=== PATIENT | male | born 1975 | race Two or more races ===

== ENCOUNTER 2024-07-18 22:55 | Emergency (ER) | payer MEDICAID, SELFPAY ==
[2024-07-18 22:56] VITALS: BMI 25.2
--- NOTE | 2024-07-18 23:05 | XR_ITS ---
Examination: CT brain head without contrast. 2-D sagittal coronal reconstructions Date and time of exam:July 19, 2024 0051 hrs. Indications: Headaches neck pain beginning 6 days ago CTDI: vol (mGy):47.6 DLP: (mGycm):947 Technique: Multiple CT axial sections of the brain have been obtained, 5 mm slice thickness. Contrast has not been administered. 2-D sagittal, coronal reconstructions have been obtained Low dose protocols were performed. One or more of the following dose reduction techniques were used; automated exposure control, adjustment of the mA and/or KV according to patient size, use of iterative reconstruction technique. Findings: No significant ventricular enlargement. Intra-axial or extra-axial hemorrhage density is not seen. No mass effect or midline shift Basal cisterns are not remarkable. Fourth ventricle is midline. Cranial vault intact. Large retention cyst in right maxillary antrum small retention cyst left maxillary antrum Impression: Negative for acute hemorrhage, mass effect or midline shift
[2024-07-18 23:07] VITALS: BP 136/78; PULSE 89; RESP 18; TEMP 36.4; O2SAT 97
[2024-07-18 23:33] LABS: Collection Type, Urine Clean Catch; Squamous Epithelial Cell,Urine 0 /hpf (0-5); WBC,Urine 0 /hpf (0-5)
[2024-07-19 00:26] LABS: Bilirubin,Urine Negative (Negative); Blood,Urine Trace (Negative); Color,Urine Lt-Yellow (Lt Yel-Yel); Culture Indicated,Urine Not Indicated; Glucose, Urine Negative (Negative); Ketones,Urine Negative (Negative); Leukocyte Esterase,Urine Negative (Negative); Nitrite,Urine Negative (Negative); PH,Urine 7.5 (5.0-7.0); Protein,Urine Negative (Neg - Trace); RBC,Urine 2 /hpf (0-3); Urobilinogen,Urine Negative mg/dL (0.0-1.0)
[2024-07-19 00:27] LABS: Clarity,Urine Turbid (Clear/Hazy)
[2024-07-19 00:44] LABS: Amphetamine/Methamp Scrn,U Negative (Negative); Barbiturate Screen,Urine Negative (Negative); Benzodiazepines Screen,Urine Negative (Negative); Benzoylecgonine Screen, Ur Negative (Negative); Fentanyl Screen,Urine Negative (Negative); Opiate Screen,Urine Negative (Negative); THC Screen,Urine Negative (Negative)
--- NOTE | 2024-07-19 03:07 | PD.EDHA ---
ED Headache RME/HPI General Chief Complaint: Headache Stated Complaint: headache, neck pain, abd pain Time Seen by Provider: 07/18/24 22:58 Arrival date/time: 07/18/24 22:55 RME / HPI RME / HPI Narrative: This section includes all my notes and documentations, including HPI, PE, and ED course.? Colin Thompson MD HPI: 49 year old male here with a few days of severe headache. In the posterior area. Has difficulty describing the quality of the pain. No visual or speech impairment. Nausea on and off. No fever. No loss of power in arms or legs. No other complaints. ROS: All negative except as documented in HPI. Physical Exam: General:? Alert and oriented.? Appears uncomfortable. Eyes:? Conjunctivae and lids clear.? PERRL. EOMI. ENT:? No nasal congestion. Pharynx normal. TM normal bilaterally. Neck:? Supple.? No carotid bruit. Heart:? RRR.? Lungs:? No respiratory distress.? Good air movement.? No rhonchi, wheezing, rales.?? Abdomen:? Soft and nontender.?? Legs:? No clubbing, cyanosis, edema.? Skin:? Warm and dry.?? Neuro:? Alert and oriented X 3.??CN 2-12 grossly normal. No peripheral motor deficits. I reviewed all diagnostic test results. My review of the head CT report is?no acute findings. UDS negative. UA unremarkable. At this point, diagnoses include?Tension Headache. Treatment here included?Zofran and Tylenol #3. Significant improvement noted. Recommended supportive care. Based on my best medical judgment, made decision no further evaluation or treatment indicated at this time.? Patient understands and agrees to the discharge instructions customized and printed, see below. Discharge Instructions from Dr. Thompson printed for you: 1. There is no life-threatening condition, such as stroke or brain tumor. 2. Zofran for nausea/vomiting. Tylenol with codeine for severe pain. 3. See a private doctor on 07/21/2024 for recheck and further care. 4. Seek immediate medical care with worsening or with any concerns. Colin Thompson MD Related Data Previous Rx's ?Medication ?Instructions ?Recorded ibuprofen 600 mg tablet 600 mg PO Q8HR PRN PAIN #25 tabs 02/06/16 acetaminophen 300 mg-codeine 30 mg 2 tab PO TID PRN pain #20 tabs 07/19/24 tablet Allergies Allergy/AdvReac Type Severity Reaction Status Date / Time NKA* Allergy Uncoded 07/18/24 22:59 Course Quality Measures none Orders Category Date Time Status CT head/brain wo con Stat Exams 07/18/24 23:05 Completed Drug Screen,Urine Stat Lab 07/18/24 23:22 Completed UA, C/S IF [Urinalysis, C/S if Indicated] Stat Lab 07/18/24 23:22 Completed ACETAMINOPHEN w/COD 300-30 [Tylenol w/Cod #3] Med 07/19/24 03:01 Discontinued 2 tab PO X1 ONE Ondansetron Odt [Zofran Odt] Med 07/19/24 03:01 Discontinued 4 mg PO X1 ONE Vital Signs Vital signs: Vital Signs Temperature 97.6 F 07/18/24 23:07 Pulse Rate 89 07/18/24 23:07 Respiratory Rate 18 07/18/24 23:07 Blood Pressure 136/78 H 07/18/24 23:07 Pulse Oximetry (%) 97 07/18/24 23:07 Oxygen Delivery Method Room Air 07/18/24 23:07 Headache Patient data External records reviewed:: [facility] previous records Clinical information provided by:: patient Social determinants that could affect healthcare access:: none Patient has the following chronic illnesses:: None How is presenting disease/condition affected by chronic disease/condition?: no chronic disease Evaluation data The following diagnostics were reviewed and interpreted by me:: lab results and radiology exam(s) Lab and/or radiology exams considered but not ordered:: None Interpretation Summary: Tension Headache Medications / Prescriptions Medications or Prescriptions considered but not ordered:: None Medication administrations:: Medication Administration History Discontinued Medications Acetaminophen/Codeine Phosphate (Acetaminophen W/Cod 300-30 Tablet) 2 tab PO X1 ONE Stop: 07/19/24 03:02 Last Admin: 07/19/24 03:08 Dose: 2 tab Documented By: KG Ondansetron HCl (Ondansetron Odt 4 Mg Tabrap) 4 mg PO X1 ONE; Protocol Stop: 07/19/24 03:02 Last Admin: 07/19/24 03:09 Dose: 4 mg Documented By: KG Zofran and Tylenol #3 Consultations Consultation(s) initiated? (list below): No Diagnosis Differential diagnosis headache: migraine, tension headache and subarachnoid hemorrhage Most likely diagnosis given after review of the tests above:: Tension Headache Admission Indicated Admission indicated?: not indicated Explain why admission is indicated or not indicated:: Admission was not indicated. Admission Request Was there a request for admission?: No Disposition Plan Disposition Plan: Discharge Discharge Attestation Discharge Attestation: The patient and all family members were given an opportunity to ask questions and understood the discharge instructions. Discharge instructions specifically effects, indications for sooner follow up or return to the emergency department, and the expected course of current diagnosis. Patient condition: Stable Discharge Plan Plan Patient Disposition: HOME (Self Care) Prescriptions/Referrals Prescriptions/Med Rec: New acetaminophen-codeine 300-30 mg tablet 2 tab PO TID MDD 6 PRN (Reason: pain) Qty: 20 0RF No Action ibuprofen 600 MG tablet 600 mg PO Q8HR PRN (Reason: PAIN) Qty: 25 0RF Problem List Clinical Impression: Headache Patient/Caregiver Discharge Instructions Discharge Activity: activity as tolerated Education Materials: ED Headache, Tension, ED Headache, Migraine, Classic Additional Instructions: Discharge Instructions from Dr. Thompson printed for you: 1. There is no life-threatening condition, such as stroke or brain tumor. 2. Zofran for nausea/vomiting. Tylenol with codeine for severe pain. 3. See a private doctor on 07/21/2024 for recheck and further care. 4. Seek immediate medical care with worsening or with any concerns. Print Language: Japanese Stand Alone Forms: Linda Award Info., Patient Portal Info Letter
[2024-07-19] MEDS: ACETAMINOPHEN w/COD 300-30 TABLET 2 TAB PO (03:08)
[2024-07-19] MEDS: ONDANSETRON ODT 4 MG TABRAP PO (03:09)
== END 2024-07-19 03:10 | disposition home or self-care (01) ==
LOC: SERX 07-19 03:42
PROVIDERS: Emergency Provider Emergency Medicine
DX: G44.209 Tension-type headache, unspecified, not intractable (principal)
CPT/HCPCS: 70450; 80307; 81001; 99284; Q0162; A9270

== ENCOUNTER 2024-07-26 11:51 | Emergency (ER) | payer MEDICAID, SELFPAY ==
[2024-07-26 12:09] VITALS: BP 131/78; PULSE 80; RESP 18; TEMP 37.2; O2SAT 98; BMI 24.2
--- NOTE | 2024-07-26 12:23 | XR_ITS ---
Examination: Abdomen sonogram, Limited Date and time of exam: July 26, 2024 1237 hrs. Indications: Epigastric pain abdominal pain today Technique: Real-time culp scale transabdominal sonographic images of the upper abdomen obtained. Findings: Negative for gallstones Gallbladder wall 0.36 cm no edema Common bile duct 0.5 cm no stones Pancreatic head 2.6 cm Liver 13.9 cm no focal liver lesions Normal hepatopedal portal venous flow Patent IVC Impression: Negative for cholelithiasis, negative for cholecystitis Normal common bile duct
--- NOTE | 2024-07-26 12:29 | PD.EDNV ---
Nausea/Vomit./Diarrhea-RME/HPI General Chief complaint: Headache Stated complaint: HEADACHE, ABD PAIN, NAUSEA X 13 DAYS Time Seen by Provider: 07/26/24 12:28 Source: patient Arrival date/time: 07/26/24 11:51 49-year-old male with no known medical history presents to the emergency room with a chief complaint of right upper quadrant abdominal pain and tenderness, nausea, headaches x 13 days. Mode of arrival: ambulatory Limitations: no limitations Related Data Previous Rx's ?Medication ?Instructions ?Recorded ibuprofen 600 mg tablet 600 mg PO Q8HR PRN PAIN #25 tabs 02/06/16 acetaminophen 300 mg-codeine 30 mg 2 tab PO TID PRN pain #20 tabs 07/19/24 tablet docusate sodium 100 mg capsule 100 mg PO QDAY #14 caps 07/26/24 (Colace) ondansetron 4 mg disintegrating 4 mg PO Q8H PRN nausea and 07/26/24 tablet vomiting #14 tabs omeprazole 20 mg capsule,delayed 20 mg PO QDAY 14 days #14 caps 07/28/24 release ondansetron 4 mg disintegrating 4 mg PO Q8H PRN nausea and 07/28/24 tablet vomiting #15 tabs Allergies Allergy/AdvReac Type Severity Reaction Status Date / Time NKA* Allergy Uncoded 07/26/24 11:53 Review of Systems Review of Systems Systems Reviewed: All systems reviewed, normal except as documented Constitutional Constitutional: Reports system reviewed and no additional complaints, except as documented, Denies fatigue, Denies fever(s), Denies headache(s) and Denies weakness Eyes Eyes: Reports system reviewed and no additional complaints, except as documented, Denies blurry vision and Denies change in vision ENT Ears, Nose, Mouth, and Throat: Reports system reviewed and no additional complaints, except as documented, Denies otalgia, Denies headache(s), Denies nasal congestion, Denies throat swelling and Denies vertigo Cardiovascular Cardiovascular: Reports system reviewed and no additional complaints, except as documented, Denies chest pain, Denies dyspnea and Denies dyspnea on exertion Respiratory Respiratory: Reports system reviewed and no additional complaints, except as documented, Denies chest congestion, Denies cough, Denies dyspnea, Denies dyspnea on exertion and Denies wheezing Gastrointestinal Gastrointestinal: Reports system reviewed and no additional complaints, except as documented, Denies abdominal pain, Denies cramping, Denies nausea and Denies vomiting Genitourinary Genitourinary: Reports system reviewed and no additional complaints, except as documented, Denies dysuria and Denies hematuria Musculoskeletal Musculoskeletal: Reports system reviewed and no additional complaints, except as documented and Denies back pain Integumentary/Breasts Skin/Breast: Reports system reviewed and no additional complaints, except as documented and Denies wounds Neurologic Neurologic: Reports system reviewed and no additional complaints, except as documented, Denies confusion, Denies headache(s), Denies lack of coordination, Denies vertigo and Denies weakness Psychiatric Psychiatric: Reports system reviewed and no additional complaints, except as documented, Denies anxiety, Denies confusion, Denies depression, Denies paranoia, Denies suicidal ideation and Denies tactile hallucinations Endocrine Endocrine: Reports system reviewed and no additional complaints, except as documented and Denies fatigue Hematologic/Lymphatic Hematologic/Lymphatic: Reports system reviewed and no additional complaints, except as documented and Denies lymphadenopathy Allergic/Immunologic Allergic/Immunologic: Reports system reviewed and no additional complaints, except as documented, Denies throat swelling, Denies urticaria and Denies wheezing Past Medical History Past Medical History CARDIAC: Negative Congestive Heart Failure RESPIRATORY: Negative Chronic Obstructive Pulmonary Disease (COPD) GENITOURINARY: Negative Renal Disease ENDOCRINE: Negative Diabetes Mellitus Type 1 or Diabetes Mellitus Type 2 Social History SMOKING STATUS: Never smoker ED Exam General Limitations: Present no limitations General appearance: Present alert and in no apparent distress Head Head exam: Present atraumatic Eye Eye exam: Present normal appearance, PERRL and EOMI ENT ENT exam: Present normal exam, normal oropharynx and mucous membranes moist Neck Neck exam: Present normal inspection, full ROM and trachea midline Chest Chest inspection: Present normal inspection and symmetric chest wall rise Respiratory Respiratory exam: Present normal lung sounds bilaterally Cardiovascular Cardiovascular exam: Present regular rate, normal rhythm and normal heart sounds Abdominal Exam Abdominal exam: Present soft and normal bowel sounds Extremities Exam Extremities exam: Present normal inspection and full ROM Back Exam Back exam: Present normal inspection and full ROM Neurological Exam Neurological exam: Present alert, oriented X3 and CN II-XII intact Psychiatric Psychiatric exam: Present normal affect and normal mood Skin Skin exam: Present warm, dry, intact and normal color Course Quality Measures none Orders Category Date Time Status Bedside COVID-19 Antigen Test NOW Care 07/26/24 12:24 Completed Bedside Influenza A&B Antigen Test NOW Care 07/26/24 12:24 Completed US gall bladder Stat Exams 07/26/24 12:23 Completed CBC Stat Lab 07/26/24 12:43 Completed CMP [Comprehensive Metabolic Panel] Stat Lab 07/26/24 12:43 Completed Lipase Stat Lab 07/26/24 12:43 Completed UA [Urinalysis] Stat Lab 07/26/24 13:31 Completed Urine Culture Stat Lab 07/26/24 13:31 Completed Vital Signs Vital signs: Vital Signs Temperature 98.9 F 07/26/24 12:09 Pulse Rate 80 07/26/24 12:09 Respiratory Rate 18 07/26/24 12:09 Blood Pressure 131/78 H 07/26/24 12:09 Pulse Oximetry (%) 98 07/26/24 12:09 Oxygen Delivery Method Room Air 07/26/24 12:09 O2 saturation 98% within normal limit Nausea/Vomiting/Diarrhea MDM Narrative MDM Narrative:: 49-year-old male with no known medical history presents to the emergency room with a chief complaint of right upper quadrant abdominal pain and tenderness, nausea, headaches x 13 days. Patient is hemodynamically stable and in no apparent distress Physical examination shows right upper quadrant abdominal tenderness with palpation with a negative Gordon sign. Patient is also having pain and tenderness to the epigastric area of his abdomen. Ultrasound of the gallbladder was completed and was negative for any cholelithiasis or cholecystitis. CBC CMP were negative for any leukocytosis. Patient's sodium was at 127. Patient was educated to increase his sodium intake. Patient is alert and oriented and agreed to the plan. Patient was discharged and educated to follow-up with primary care provider and return to the emergency room for any evidence of worsening signs or symptoms Patient data External records reviewed:: [facility] previous records Clinical information provided by:: patient Social determinants that could affect healthcare access:: none Patient has the following chronic illnesses:: No chronic illness How is presenting disease/condition affected by chronic disease/condition?: no chronic disease Evaluation data The following diagnostics were reviewed and interpreted by me:: lab results and radiology exam(s) Lab and/or radiology exams considered but not ordered:: Labs and radiology exams considered and ordered Interpretation Summary: N/A Medications / Prescriptions Medications / Prescriptions considered but not ordered:: No medication given Medication administrations:: No medication given Consultations Consultation(s) initiated? (list below): No Diagnosis Nausea Differential Diagnosis: traveler's diarrhea, food poisoning, gastroenteritis, drug-induced nausea and vomiting and dehydration Most likely diagnosis given after review of the tests above:: Gastroenteritis Admission Indicated Admission indicated?: not indicated Admission Request Was there a request for admission?: No Disposition Plan Disposition Plan: Discharge Discharge Attestation Discharge Attestation: The patient and all family members were given an opportunity to ask questions and understood the discharge instructions. Discharge instructions specifically effects, indications for sooner follow up or return to the emergency department, and the expected course of current diagnosis. Patient condition: Stable Discharge Plan Plan Patient Disposition: HOME (Self Care) Disposition Comment: Stable Prescriptions/Referrals Prescriptions/Med Rec: New ondansetron 4 mg tablet,disintegrating 4 mg PO Q8H PRN (Reason: nausea and vomiting) Qty: 14 0RF docusate sodium [Colace] 100 mg capsule 100 mg PO QDAY Qty: 14 0RF No Action ibuprofen 600 MG tablet 600 mg PO Q8HR PRN (Reason: PAIN) Qty: 25 0RF acetaminophen-codeine 300-30 mg tablet 2 tab PO TID MDD 6 PRN (Reason: pain) Qty: 20 0RF omeprazole 20 mg capsule,delayed release(DR/EC) 20 mg PO QDAY 14 Days Qty: 14 0RF ondansetron 4 mg tablet,disintegrating 4 mg PO Q8H PRN (Reason: nausea and vomiting) Qty: 15 0RF Referrals: No Primary/Family,Physician [Primary Care Provider] - In 1 week Problem List Clinical Impression: Gastroenteritis Patient/Caregiver Discharge Instructions Education Materials: ED Gastroenteritis, Noninfectious Additional Instructions: Please follow-up with your primary care provider in the next 24 to 48 hours. For any evidence of worsening signs or symptoms please return to the emergency room immediately Print Language: Eritrean Stand Alone Forms: Linda Award Info., Patient Portal Info Letter PA/BRITTANI Supervising Physician PA/BRITTANI Supervising Physician: Dr. Boswell
[2024-07-26 13:11] LABS: Basophils % (Auto) 0 % (0-2.5); Eosinophils % (Auto) 0 % (0-10); Immature Granulocytes % (Auto) 1 % (0-0); Immature Granulocytes Auto 0.05 Thou/mm3 (0.00-0.00); Lymphocytes # (Auto) 1.1 Thou/mm3 (1.0-4.8); Lymphocytes % (Auto) 11 % (10-50); Mean Corpuscular HGB Conc 36.6 g/dl (31.0-37.0); Mean Corpuscular Hemoglobin 30.1 pg (25.0-35.0); Mean Corpuscular Volume 82 fL (80-100); Monocytes # (Auto) 0.6 Thou/mm3 (0.0-0.8); Monocytes % (Auto) 6 % (0-12); Neutrophils # (Auto) 8.3 Thou/mm3 (1.8-7.7); Neutrophils % (Auto) 82 % (37-80); Nucleated Red Blood Cell % 0 /100 WBC (0); Platelet Count 259 Thou/mm3 (140-440); RDW Standard Deviation 34.6 fL (35.1-43.9); Red Blood Count 4.98 Miln/mm3 (4.50-5.90); White Blood Count 10.1 Thou/mm3 (3.8-10.6)
[2024-07-26 13:29] LABS: Alanine Aminotransferase 10 U/L (10-49); Albumin, Serum 4.7 gm/dL (3.5-5.0); Albumin/Globulin Ratio 1.6 (1.2-2.2); Alkaline Phosphatase 91 U/L (46-116); Anion Gap 9 (7-16); Aspartate Amino Transferase 13 U/L (0-34); BUN/Creatinine Ratio 15 Ratio (12-20); Blood Urea Nitrogen 12 mg/dL (9-23); Calcium 9.4 mg/dL (8.3-10.6); Calcium (Corrected) 9.4 mg/dL (8.5-10.1); Chloride 91 mMol/L (98-107); Creatinine (Component) 0.8 mg/dL (0.6-1.3); Glucose 111 mg/dL (74-106); Lipase 34 U/L (12-53); Osmolality,Calculated 255 (275-295); Potassium 3.8 mMol/L (3.4-5.1); Sodium 127 mMol/L (136-145); Total Protein 7.7 gm/dL (5.7-8.2); eGFR > 60 See Note
[2024-07-26 14:01] LABS: Collection Type, Urine Clean Catch; Squamous Epithelial Cell,Urine 0 /hpf (0-5); WBC,Urine 0 /hpf (0-5)
[2024-07-26 14:14] LABS: Amorphous Crystals,Urine Present (Absent); Bilirubin,Urine Negative (Negative); Blood,Urine Negative (Negative); Clarity,Urine Turbid (Clear/Hazy); Color,Urine Lt-Yellow (Lt Yel-Yel); Glucose, Urine Negative (Negative); Ketones,Urine Negative (Negative); Leukocyte Esterase,Urine Negative (Negative); Nitrite,Urine Negative (Negative); PH,Urine 6.5 (5.0-7.0); Protein,Urine Negative (Neg - Trace); RBC,Urine 4 /hpf (0-3); Urobilinogen,Urine Negative mg/dL (0.0-1.0)
== END 2024-07-26 15:50 | disposition home or self-care (01) ==
PROVIDERS: Nurse Practitioner Family; Emergency Provider Emergency Medicine
DX: K52.9 Noninfective gastroenteritis and colitis, unspecified (principal)
CPT/HCPCS: 36415; 76705; 80053; 81001; 83690; 85025; 87086; 87400; 87811; 99284

== ENCOUNTER 2024-07-28 20:39 | Emergency (ER) | payer MEDICAID, SELFPAY ==
[2024-07-28 20:40] VITALS: BMI 25.4
[2024-07-28 20:45] VITALS: BP 119/69; PULSE 74; RESP 18; TEMP 36.6; O2SAT 97
--- NOTE | 2024-07-28 20:56 | EDNOTE_ITS ---
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 He reports associated nausea and vomiting. States he feels full. No lower abdominal pain. No fevers. No diarrhea. No chest pain. Related Data Previous Rx's ?Medication ?Instructions ?Recorded ibuprofen 600 mg tablet 600 mg PO Q8HR PRN PAIN #25 tabs 02/06/16 acetaminophen 300 mg-codeine 30 mg 2 tab PO TID PRN pa in #20 tabs 07/19/24 tablet docusate sodium 100 mg capsule 100 mg PO QDAY #14 caps 07/26/24 (Colace) ondansetron 4 mg disintegrating 4 mg PO Q8H PRN nausea and 07/26/24 tablet vomiting #14 tabs omeprazole 20 mg capsule,delayed 20 mg PO QDAY 14 days #14 caps 07/28/24 release ondansetron 4 mg disintegrating 4 mg PO Q8H PRN nausea and 07/28/24 tablet vomiting #15 tabs Allergies Allergy/AdvReac Type Severity Reaction Status Date / Time NKA* Allergy Uncoded 07/26/24 11:53 Review of Systems Review of Systems Systems Reviewed: All systems reviewed, normal except as documented ED Exam Narrative Physical exam: Constitutional: no acute distress, age appropriate, non-toxic Eyes: PERRL, conjunctivae w/o pallor, EOMI HENT: normocephalic, atraumatic. Oral mucosa moist Respiratory Effort: no stridor, effort normal, no retractions Breath sounds: Clear bilaterally; No rales, No rhonchi, No wheezing Cardiovascular: regular rhythm, S1 and S2 normal, no murmur Abdominal: soft; non-distended. Epigastric tenderness. No rebound tenderness or guarding. No McBurney point tenderness. Negative Gordon sign. Musculoskeletal: no deformities, no swelling, no LE edema Skin: warm, dry; No rash Neurology: alert, oriented X 4. Normal gait. Moves all extremities spontaneously. Psychology: cooperative, normal mood Course Quality Measures none Orders Category Date Time Status IV [Insert IV] NOW Care 07/28/24 22:12 Active CBC Stat Lab 07/28/24 20:59 Completed CMP [Comprehensive Metabolic Panel] Stat Lab 07/28/24 20:59 Completed Lipase Stat Lab 07/28/24 20:59 Completed Famotidine [Pepcid] Med 07/28/24 20:54 Discontinued 40 mg PO X1 ONE Ondansetron Odt [Zofran Odt] Med 07/28/24 20:54 Discontinued 4 mg PO X1 ONE Ringers Lactated 1000 ml [Lactated Ringers] 1,000 ml Med 07/28/24 21:53 Discontinued IV 999 mls/hr Sodium Chloride 0.9% 1000 ml [Ns] 1,000 ml Med 07/28/24 21:58 Discontinued IV 999 mls/hr mg Hyd/Al Hyd/Domingo Susp [Maalox Susp] Med 07/28/24 20:54 Discontinued 30 ml PO X1 ONE Vital Signs Vital signs: Vital Signs Temperature 97.8 F 07/28/24 20:45 Pulse Rate 74 07/28/24 20:45 Respiratory Rate 18 07/28/24 20:45 Blood Pressure 119/69 07/28/24 20:45 Pulse Oximetry (%) 97 07/28/24 20:45 Oxygen Delivery Method Room Air 07/28/24 20:45 Abdominal Pain MDM MDM Narrative [facility] Narrative:: 49-year-old male presents with epigastric pain along with nausea and vomiting. Differential diagnoses include gastroenteritis, gastritis, electrolyte abnormality, dehydration Labs reveal mild hyponatremia to 127. This was repleted with IV NS. Labs otherwise unremarkable. Patient had an ultrasound last time he was here that showed a normal gallbladder. Likely gastritis versus viral gastro. Patient feeling better after medications. Counseled to drink an electrolyte replacement drink and rest. Counseled to follow-up with primary care. Return to ED precautions given for Patient data External records reviewed:: [facility] previous records Clinical information provided by:: patient Social determinants that could affect healthcare access:: none Patient has the following chronic illnesses:: None How is presenting disease/condition affected by chronic disease/condition?: no chronic disease Evaluation data The following diagnostics were reviewed and interpreted by me:: lab results Lab and/or radiology exams considered but not ordered:: Considered CT abdomen pelvis, but abdominal exam is benign, CT scan not e mergently indicated. Interpretation Summary: CBC shows no leukocytosis or anemia CMP shows mild hyponatremia, no ANSLEY. LFTs less than 3x upper limit of normal Medications / Prescriptions Medications or Prescriptions considered but not ordered:: N/A Medication administrations:: Medication Administration History Discontinued Medications Al Hydrox/Mg Hydrox/Simethicone (Mg Hyd/Al Hyd/Domingo (Maalox Reg) Susp 30 Ml Udc) 30 ml PO X1 ONE Stop: 07/28/24 20:55 Last Admin: 07/28/24 21:01 Dose: 30 ml Documented By: Famotidine (Famotidine 20 Mg Tablet) 40 mg PO X1 ONE Stop: 07/28/24 20:55 Last Admin: 07/28/24 21:01 Dose: 40 mg Documented By: Lactated Ringer's (Lactated Ringers) 1,000 mls @ 999 mls/hr IV .Q1H1M ONE Stop: 07/28/24 22:53 Last Admin: 07/28/24 22:06 Dose: Not Given Documented By: RC Non-Admin Reason: Discontinued Sodium Chloride (Ns) 1,000 mls @ 999 mls/hr IV .Q1H1M ONE Stop: 07/28/24 22:58 Last Admin: 07/28/24 22:11 Dose: 999 mls/hr Documented By: BLANK Ondansetron HCl (Ondansetron Odt 4 Mg Tabrap) 4 mg PO X1 ONE; Protocol Stop: 07/28/24 20:55 Last Admin: 07/28/24 21:02 Dose: 4 mg Documented By: See above Consultations Consultation(s) initiated? (list below): No Diagnosis Differential diagnosis abdominal pain: abdominal pain, acute appendicitis, diverticulitis, gastroenteritis, pancreatitis and other (Gastritis) Most likely diagnosis given after review of the tests above:: Gastritis, vomiting Admission Indicated Admission indicated?: not indicated Admission Request Was there a request for admission?: No Disposition Plan Disposition Plan: Discharge Discharge Attestation Discharge Attestation: The patient and all family members were given an opportunity to ask questions and understood the discharge instructions. Discharge instructions specifically effects, indications for sooner follow up or return to the emergency department, and the expected course of current diagnosis. Patient condition: Stable Discharge Plan Plan Patient Disposition: HOME (Self Care) Prescriptions/Referrals Prescriptions/Med Rec: New omeprazole 20 mg capsule,delayed release(DR/EC) 20 mg PO QDAY 14 Days Qty: 14 0RF ondansetron 4 mg tablet,disintegrating 4 mg PO Q8H PRN (Reason: nausea and vomiting) Qty: 15 0RF No Action ibuprofen 600 MG tablet 600 mg PO Q8HR PRN (Reason: PAIN) Qty: 25 0RF acetaminophen-codeine 300-30 mg tablet 2 tab PO TID MDD 6 PRN (Reason: pain) Qty: 20 0RF ondansetron 4 mg tablet,disintegrating 4 mg PO Q8H PRN (Reason: nausea and vomiting) Qty: 14 0RF docusate sodium [Colace] 100 mg capsule 100 mg PO QDAY Qty: 14 0RF Referrals: No Primary/Family,Physician [Primary Care Provider] - In 1 week Problem List Clinical Impression: Gastritis Patient/Caregiver Discharge Instructions Education Materials: ED Gastritis (Adult) Additional Instructions: Follow up with your doctor if not better in 3 days. Take your medications as prescribed. Return to the ED for any new or worsening symptoms for further evaluation and treatment. Print Language: Cambodian Stand Alone Forms: Linda Award Info., Patient Portal Info Letter
[2024-07-28] MEDS: FAMOTIDINE 20 MG TABLET 40 MG PO (21:01)
[2024-07-28] MEDS: MG HYD/AL HYD/SIME (Maalox Reg) SUSP 30 ML UDC PO (21:01)
[2024-07-28] MEDS: ONDANSETRON ODT 4 MG TABRAP PO (21:02)
[2024-07-28 21:15] LABS: Basophils % (Auto) 0 % (0-2.5); Eosinophils % (Auto) 0 % (0-10); Hematocrit 37.4 % (41.0-53.0); Hemoglobin 13.6 g/dL (13.5-16.0); Immature Granulocytes % (Auto) 0 % (0-0); Immature Granulocytes Auto 0.03 Thou/mm3 (0.00-0.00); Lymphocytes # (Auto) 1.1 Thou/mm3 (1.0-4.8); Lymphocytes % (Auto) 12 % (10-50); Mean Corpuscular HGB Conc 36.4 g/dl (31.0-37.0); Mean Corpuscular Hemoglobin 30.4 pg (25.0-35.0); Mean Corpuscular Volume 84 fL (80-100); Monocytes # (Auto) 0.6 Thou/mm3 (0.0-0.8); Monocytes % (Auto) 6 % (0-12); Neutrophils # (Auto) 7.3 Thou/mm3 (1.8-7.7); Neutrophils % (Auto) 81 % (37-80); Nucleated Red Blood Cell % 0 /100 WBC (0); Platelet Count 229 Thou/mm3 (140-440); RDW Standard Deviation 35.4 fL (35.1-43.9); Red Blood Count 4.47 Miln/mm3 (4.50-5.90)
[2024-07-28 21:29] LABS: Alanine Aminotransferase 12 U/L (10-49); Albumin, Serum 4.4 gm/dL (3.5-5.0); Albumin/Globulin Ratio 1.5 (1.2-2.2); Alkaline Phosphatase 77 U/L (46-116); Anion Gap 9 (7-16); Aspartate Amino Transferase 14 U/L (0-34); BUN/Creatinine Ratio 14 Ratio (12-20); Bilirubin,Total 0.9 mg/dL (0.3-1.2); Blood Urea Nitrogen 11 mg/dL (9-23); Calcium 9.2 mg/dL (8.3-10.6); Calcium (Corrected) 9.2 mg/dL (8.5-10.1); Carbon Dioxide 26.7 mMol/L (20.0-31.0); Chloride 91 mMol/L (98-107); Creatinine (Component) 0.8 mg/dL (0.6-1.3); Globulin 2.9 gm/dL (2.3-3.5); Glucose 131 mg/dL (74-106); Lipase 33 U/L (12-53); Osmolality,Calculated 256 (275-295); Potassium 3.7 mMol/L (3.4-5.1); Sodium 127 mMol/L (136-145); Total Protein 7.3 gm/dL (5.7-8.2); eGFR > 60 See Note
[2024-07-28] MEDS: SODIUM CHLORIDE 0.9% 1000 ML 1,000 ML 999 ML IV (22:11)
[2024-07-28 22:33] VITALS: BP 123/74; PULSE 62; RESP 18; O2SAT 97
[2024-07-28 23:35] VITALS: BP 116/71; PULSE 73; RESP 18; TEMP 36.7; O2SAT 99
== END 2024-07-28 23:38 | disposition home or self-care (01) ==
PROVIDERS: Physician Assistant; Emergency Provider Emergency Medicine
DX: K29.70 Gastritis, unspecified, without bleeding (principal); E87.1 Hypo-osmolality and hyponatremia
CPT/HCPCS: 36415; 80053; 83690; 85025; 96360; 96361; 99284; J7030; Q0162; A9270